=== PATIENT | female | born 2000 | race Caucasian/White ===

== ENCOUNTER 2023-08-23 23:33 | Emergency (ER) | payer OTHER ==
[2023-08-23] MEDS ORDERED: Sodium Chloride 0.9% 10 ML Syringe FLUSH PRN (23:56)
[2023-08-24 00:09] LABS: BASOPHILS ABSOLUTE AUTO 0.1 x10-3/uL (0.0-0.1); BASOPHILS PERCENT AUTO 0.9 % (0.2-1.5); EOSINOPHILS ABSOLUTE AUTO 0.4 x10-3/uL (0.0-0.8); EOSINOPHILS PERCENT AUTO 4.1 % (0.6-8.1); HEMATOCRIT 44.2 % (34.2-48.2); HEMOGLOBIN 15.1 g/dL (11.4-15.5); LYMPHOCYTES ABSOLUTE AUTO 3.3 x10-3/uL (1.0-4.4); LYMPHOCYTES PERCENT AUTO 31.8 % (18.4-52.1); MEAN CORPUSCULAR HEMOGLOBIN 28.7 pg (23.9-33.9); MEAN CORPUSCULAR HGB CONC 34.1 g/dL (31.9-34.8); MEAN CORPUSCULAR VOLUME 84.2 fL (76.7-100.5); MONOCYTES ABSOLUTE AUTO 0.9 x10-3/uL (0.3-1.0); MONOCYTES PERCENT AUTO 9.2 % (4.4-15.7); NEUTROPHILS ABSOLUTE AUTO 5.6 x10-3/uL (1.5-6.3); PLATELET COUNT,PLT 329 x10(3)uL (151-488); RED BLOOD CELL COUNT 5.25 x10(6)uL (3.60-5.20); RED CELL DISTRIBUTION WIDTH 13.7 % (12.3-16.5); WHITE BLOOD CELL COUNT,WBC 10.3 x10-3/uL (3.0-10.3)
[2023-08-24] MEDS: Sodium Chloride 0.9% 1,000 ML IV ONE (00:09)
[2023-08-24] MEDS ORDERED: Naloxone 0.4 MG/ML SDV IVPUSH PRN (00:11)
[2023-08-24 00:12] LABS: BLOOD UREA NITROGEN,BUN 12 mg/dL (7-18); CALCIUM 8.7 mg/dL (8.6-10.2); CARBON DIOXIDE,CO2 26 mmol/L (21-32); CHLORIDE,CL 105 mmol/L (100-110); EST CRCL DRUG DOSING (CG) 73.61 mL/min; ESTIMATED GFR 82 mL/min (>60); GLUCOSE RANDOM 96 mg/dL (80-116); POTASSIUM,K 4.3 mmol/L (3.5-5.3); SODIUM,NA 141 mmol/L (135-145)
[2023-08-24 00:14] LABS: LIPASE 37 U/L (16-77)
[2023-08-24 00:16] LABS: C-REACTIVE PROTEIN < 0.50 mg/dL (<0.50)
[2023-08-24 00:18] LABS: A/G RATIO 0.9; ALANINE AMINOTRANSFERASE,ALT 44 U/L (12-36); ALBUMIN 3.2 g/dL (3.5-5.2); ALKALINE PHOSPHATASE 84 IU/L (56-112); ASPARTATE AMNIOTRANSFERASE,AST 34 IU/L (5-25); BILIRUBIN TOTAL 0.5 mg/dL (0.1-1.3); MAGNESIUM 1.6 mg/dL (1.8-2.5); PROTEIN TOTAL,TP 6.9 g/dL (6.0-8.0)
[2023-08-24] MEDS: HYDROmorphone 2 MG/ML SDV IVPUSH ONE (00:18)
[2023-08-24] MEDS: Ondansetron 4 MG/2 ML SDV IVPUSH ONE (00:18)
[2023-08-24] MEDS: Haloperidol Lactate 5 MG/ML SDV IVPUSH ONE (00:59)
[2023-08-24] MEDS: LORazepam 2 MG/ML SDV IVPUSH ONE (00:59)
== END 2023-08-24 02:22 | disposition home or self-care (01) ==
LOC: FB.ED 23:33
DX: R10.10 Upper abdominal pain, unspecified (principal); F41.9 Anxiety disorder, unspecified; Z88.0 Allergy status to penicillin; Z91.040 Latex allergy status; Z88.8 Allergy status to other drugs, medicaments and biological substances; Z79.899 Other long term (current) drug therapy; K21.9 Gastro-esophageal reflux disease without esophagitis
CPT/HCPCS: 36415; 80053; 83605; 83690; 83735; 85025; 86140; 96361; 96374; 96375; 99284-25; J1170; J1630; J2060; J2405; J7030

== ENCOUNTER 2023-10-17 07:55 | Day surgery (SDC) | payer OTHER ==
[~2023-10-17 07:55] MED LIST: Sodium Chloride 0.9% 10 ML Syringe FLUSH PRN
[2023-10-17] MEDS ORDERED: Propofol 200 MG/20 ML SDV IV ONE (07:56)
[2023-10-17] MEDS ORDERED: Midazolam 1 MG/ML 2 ML SDV IV ONE (07:56)
[2023-10-17] MEDS ORDERED: Ketamine 500 mg/10 ML MDV IV ONE (07:56)
[2023-10-17] MEDS: Lactated Ringers 1,000 ML IV SCH (08:40)
[2023-10-17] MEDS: Simethicone Drops 40 MG/0.6 ML 30 ML Bottle ONE (09:32)
== END 2023-10-17 11:50 | disposition home or self-care (01) ==
LOC: FB.SDS 07:55
PROVIDERS: ATTEND Surgery
DX: K29.50 Unspecified chronic gastritis without bleeding (principal); K21.00 Gastro-esophageal reflux disease with esophagitis, without bleeding; K29.80 Duodenitis without bleeding; Z79.899 Other long term (current) drug therapy; Z88.0 Allergy status to penicillin; Z91.040 Latex allergy status
CPT/HCPCS: 00731; 43239; 88305; 88312; 88342; A9270; J2250; J2704; J3490; J7120

== ENCOUNTER 2024-03-03 09:22 | Emergency (ER) | payer OTHER ==
[2024-03-03] MEDS ORDERED: Sodium Chloride 0.9% 10 ML Syringe FLUSH PRN (10:11)
[2024-03-03 10:22] LABS: BASOPHILS ABSOLUTE AUTO 0.1 x10-3/uL (0.0-0.1); BASOPHILS PERCENT AUTO 0.6 % (0.2-1.5); EOSINOPHILS ABSOLUTE AUTO 0.2 x10-3/uL (0.0-0.8); EOSINOPHILS PERCENT AUTO 2.2 % (0.6-8.1); HEMATOCRIT 43.8 % (34.2-48.2); HEMOGLOBIN 15.1 g/dL (11.4-15.5); LYMPHOCYTES ABSOLUTE AUTO 3.1 x10-3/uL (1.0-4.4); LYMPHOCYTES PERCENT AUTO 27.2 % (18.4-52.1); MEAN CORPUSCULAR HEMOGLOBIN 29.4 pg (23.9-33.9); MEAN CORPUSCULAR HGB CONC 34.5 g/dL (31.9-34.8); MEAN CORPUSCULAR VOLUME 85.2 fL (76.7-100.5); MONOCYTES ABSOLUTE AUTO 1.1 x10-3/uL (0.3-1.0); MONOCYTES PERCENT AUTO 10.1 % (4.4-15.7); NEUTROPHILS ABSOLUTE AUTO 6.7 x10-3/uL (1.5-6.3); NEUTROPHILS PERCENT AUTO 59.9 % (30.8-76.2); PLATELET COUNT,PLT 296 x10(3)uL (151-488); RED BLOOD CELL COUNT 5.14 x10(6)uL (3.60-5.20); RED CELL DISTRIBUTION WIDTH 13.8 % (12.3-16.5); WHITE BLOOD CELL COUNT,WBC 11.3 x10-3/uL (3.0-10.3)
[2024-03-03 10:27] LABS: BLOOD UREA NITROGEN,BUN 12 mg/dL (7-18); BUN/CREATININE RATIO 13.3 (9-20); CALCIUM 9.1 mg/dL (8.6-10.2); CARBON DIOXIDE,CO2 26 mmol/L (21-32); CHLORIDE,CL 108 mmol/L (100-110); CREATININE 0.9 mg/dL (0.55-1.02); EST CRCL DRUG DOSING (CG) 88.97 mL/min; ESTIMATED GFR 93 mL/min (>60); GLUCOSE RANDOM 97 mg/dL (80-116); POTASSIUM,K 3.8 mmol/L (3.5-5.3); SODIUM,NA 144 mmol/L (135-145)
[2024-03-03 10:34] LABS: A/G RATIO 0.9; ALANINE AMINOTRANSFERASE,ALT 44 U/L (12-36); ALBUMIN 3.4 g/dL (3.5-5.2); ALKALINE PHOSPHATASE 87 IU/L (56-112); ASPARTATE AMNIOTRANSFERASE,AST 20 IU/L (5-25); BILIRUBIN TOTAL 0.5 mg/dL (0.1-1.3)
[2024-03-03 10:36] LABS: BILIRUBIN,URINE NEGATIVE (NEGATIVE); GLUCOSE,URINE NORMAL (NORMAL); KETONES,URINE NEGATIVE (NEGATIVE); LEUKOCYTE ESTERASE,URINE MODERATE (NEGATIVE); NITRITE,URINE NEGATIVE (NEGATIVE); OCCULT BLOOD,URINE MODERATE (NEGATIVE); PROTEIN,URINE 500 mg/dL (NEGATIVE); UROBILINOGEN,URINE NORMAL (NEGATIVE)
[2024-03-03] MEDS: Sodium Chloride 0.9% 1,000 ML IV ONE (10:38)
[2024-03-03] MEDS: Ketorolac 15 MG/ML SDV IVPUSH ONE (10:38)
[2024-03-03] MEDS: Ondansetron 4 MG/2 ML SDV IVPUSH ONE (10:38)
[2024-03-03 10:42] LABS: LACTIC ACID 0.8 mmol/L (0.4-2.0)
[2024-03-03 10:58] LABS: APPEARANCE,URINE CLOUDY (CLEAR); COLOR,URINE YELLOW (YELLOW)
[2024-03-03 10:59] LABS: BACTERIA,URINE MODERATE (NS); SQUAMOUS EPITHELIAL CELLS,UR FEW (NS,R,O); WBC,URINE 50-75 (0-5)
[2024-03-03] MEDS: Morphine 2 MG/ML SYRINGE IVPUSH ONE ×3 (11:20→17:27)
[2024-03-03] MEDS: Ciprofloxacin in D5W 400 MG in Premix Bag 1 BAG IV ONE (14:56)
== END 2024-03-03 17:35 ==
LOC: FB.ED 09:22
DX: K55.069 Acute infarction of intestine, part and extent unspecified (principal); N39.0 Urinary tract infection, site not specified; I10 Essential (primary) hypertension; E66.9 Obesity, unspecified; Z79.899 Other long term (current) drug therapy; Z88.0 Allergy status to penicillin; Z91.040 Latex allergy status; Z88.5 Allergy status to narcotic agent; Z88.8 Allergy status to other drugs, medicaments and biological substances; Z68.37 Body mass index [BMI] 37.0-37.9, adult
CPT/HCPCS: 74176; 80053; 81001; 83605; 83690; 85025; 87086; 96361; 96365; 96375; 96376; 99285; J0744; J1885; J2270; J2405; J7030

== ENCOUNTER 2024-04-02 10:12 | Emergency (ER) | payer OTHER ==
[2024-04-02 11:03] LABS: BILIRUBIN,URINE NEGATIVE (NEGATIVE); GLUCOSE,URINE NORMAL (NORMAL); KETONES,URINE NEGATIVE (NEGATIVE); LEUKOCYTE ESTERASE,URINE NEGATIVE (NEGATIVE); NITRITE,URINE NEGATIVE (NEGATIVE); OCCULT BLOOD,URINE NEGATIVE (NEGATIVE); PROTEIN,URINE NEGATIVE (NEGATIVE); UROBILINOGEN,URINE NORMAL (NEGATIVE)
[2024-04-02] MEDS ORDERED: Naloxone 0.4 MG/ML SDV IVPUSH PRN (11:04)
[2024-04-02] MEDS: Morphine 4 MG/ML VIAL IVPUSH ONE (11:12)
[2024-04-02] MEDS: Sodium Chloride 0.9% 10 ML Syringe FLUSH PRN (11:12)
[2024-04-02] MEDS: Ondansetron 4 MG/2 ML SDV IVPUSH ONE (11:12)
[2024-04-02] MEDS: Sodium Chloride 0.9% 1,000 ML IV ONE (11:14)
[2024-04-02 11:21] LABS: APPEARANCE,URINE CLEAR (CLEAR); BACTERIA,URINE OCCASIONAL (NS); COLOR,URINE YELLOW (YELLOW); RBC,URINE 0-5 (0-5); SQUAMOUS EPITHELIAL CELLS,UR RARE (NS,R,O); WBC,URINE 0-5 (0-5)
[2024-04-02 11:26] LABS: BASOPHILS ABSOLUTE AUTO 0.1 x10-3/uL (0.0-0.1); BASOPHILS PERCENT AUTO 0.8 % (0.2-1.5); EOSINOPHILS ABSOLUTE AUTO 0.3 x10-3/uL (0.0-0.8); EOSINOPHILS PERCENT AUTO 3.7 % (0.6-8.1); HEMOGLOBIN 14.5 g/dL (11.4-15.5); LYMPHOCYTES ABSOLUTE AUTO 2.4 x10-3/uL (1.0-4.4); LYMPHOCYTES PERCENT AUTO 26.6 % (18.4-52.1); MEAN CORPUSCULAR HEMOGLOBIN 29.6 pg (23.9-33.9); MEAN CORPUSCULAR HGB CONC 34.6 g/dL (31.9-34.8); MEAN CORPUSCULAR VOLUME 85.7 fL (76.7-100.5); MONOCYTES ABSOLUTE AUTO 0.9 x10-3/uL (0.3-1.0); MONOCYTES PERCENT AUTO 9.6 % (4.4-15.7); NEUTROPHILS ABSOLUTE AUTO 5.4 x10-3/uL (1.5-6.3); NEUTROPHILS PERCENT AUTO 59.3 % (30.8-76.2); PLATELET COUNT,PLT 308 x10(3)uL (151-488); RED CELL DISTRIBUTION WIDTH 13.7 % (12.3-16.5); WHITE BLOOD CELL COUNT,WBC 9.1 x10-3/uL (3.0-10.3)
[2024-04-02 11:32] LABS: BLOOD UREA NITROGEN,BUN 10 mg/dL (7-18); BUN/CREATININE RATIO 14.3 (9-20); CALCIUM 9.9 mg/dL (8.6-10.2); CARBON DIOXIDE,CO2 29 mmol/L (21-32); CHLORIDE,CL 105 mmol/L (100-110); CREATININE 0.7 mg/dL (0.55-1.02); ESTIMATED GFR 126 mL/min (>60); GLUCOSE RANDOM 104 mg/dL (80-116); POTASSIUM,K 4.2 mmol/L (3.5-5.3); SODIUM,NA 143 mmol/L (135-145)
[2024-04-02 11:37] LABS: ALANINE AMINOTRANSFERASE,ALT 50 U/L (12-36); ALBUMIN 3.4 g/dL (3.5-5.2); ALKALINE PHOSPHATASE 90 IU/L (56-112); ASPARTATE AMNIOTRANSFERASE,AST 22 IU/L (5-25); BILIRUBIN TOTAL 0.3 mg/dL (0.1-1.3); PROTEIN TOTAL,TP 6.7 g/dL (6.0-8.0)
[2024-04-02] MEDS: Iopamidol 755 Mg/ML 100 ML Bottle IV SCH (11:54)
[2024-04-02] MEDS: Ketorolac 30 MG/ML SDV IVPUSH ONE (12:32)
== END 2024-04-02 13:30 | disposition home or self-care (01) ==
LOC: FB.ED 10:12
DX: R10.31 Right lower quadrant pain (principal); I10 Essential (primary) hypertension; E66.9 Obesity, unspecified; F17.290 Nicotine dependence, other tobacco product, uncomplicated; Z88.0 Allergy status to penicillin; Z88.5 Allergy status to narcotic agent; Z88.8 Allergy status to other drugs, medicaments and biological substances; Z91.040 Latex allergy status; Z68.37 Body mass index [BMI] 37.0-37.9, adult
CPT/HCPCS: 36415; 74177; 80053; 81001; 81025; 83605; 83690; 83735; 85025; 96361; 96374; 96375; 99284; J1885; J2270; J2405; J7030; Q9967

== ENCOUNTER 2024-05-09 00:01 | Emergency (ER) | payer OTHER ==
[2024-05-09 02:28] LABS: BASOPHILS ABSOLUTE AUTO 0.1 x10-3/uL (0.0-0.1); BASOPHILS PERCENT AUTO 0.6 % (0.2-1.5); EOSINOPHILS ABSOLUTE AUTO 0.5 x10-3/uL (0.0-0.8); EOSINOPHILS PERCENT AUTO 5.9 % (0.6-8.1); HEMATOCRIT 39.7 % (34.2-48.2); HEMOGLOBIN 13.6 g/dL (11.4-15.5); LYMPHOCYTES ABSOLUTE AUTO 2.7 x10-3/uL (1.0-4.4); LYMPHOCYTES PERCENT AUTO 29.9 % (18.4-52.1); MEAN CORPUSCULAR HEMOGLOBIN 29.7 pg (23.9-33.9); MEAN CORPUSCULAR HGB CONC 34.4 g/dL (31.9-34.8); MEAN CORPUSCULAR VOLUME 86.3 fL (76.7-100.5); MEAN PLATELET VOLUME 7.8 fL (7.1-12.4); MONOCYTES ABSOLUTE AUTO 0.8 x10-3/uL (0.3-1.0); NEUTROPHILS ABSOLUTE AUTO 4.9 x10-3/uL (1.5-6.3); NEUTROPHILS PERCENT AUTO 54.6 % (30.8-76.2); PLATELET COUNT,PLT 313 x10(3)uL (151-488); RED CELL DISTRIBUTION WIDTH 13.1 % (12.3-16.5); WHITE BLOOD CELL COUNT,WBC 8.9 x10-3/uL (3.0-10.3)
[2024-05-09 02:31] LABS: BLOOD UREA NITROGEN,BUN 15 mg/dL (7-18); BUN/CREATININE RATIO 21.4 (9-20); CALCIUM 9.2 mg/dL (8.6-10.2); CARBON DIOXIDE,CO2 27 mmol/L (21-32); CHLORIDE,CL 107 mmol/L (100-110); CREATININE 0.7 mg/dL (0.55-1.02); EST CRCL DRUG DOSING (CG) 113.43 mL/min; ESTIMATED GFR 125 mL/min (>60); GLUCOSE RANDOM 93 mg/dL (80-116); POTASSIUM,K 4.2 mmol/L (3.5-5.3); SODIUM,NA 142 mmol/L (135-145)
[2024-05-09 02:43] LABS: A/G RATIO 0.6; ALANINE AMINOTRANSFERASE,ALT 25 U/L (12-36); ALBUMIN 2.8 g/dL (3.5-5.2); ALKALINE PHOSPHATASE 85 IU/L (56-112); ASPARTATE AMNIOTRANSFERASE,AST 18 IU/L (5-25); BILIRUBIN TOTAL 0.3 mg/dL (0.1-1.3); PROTEIN TOTAL,TP 7.5 g/dL (6.0-8.0)
== END 2024-05-09 03:06 | disposition home or self-care (01) ==
LOC: FB.ED 00:01
DX: K92.1 Melena (principal); G89.18 Other acute postprocedural pain; R10.13 Epigastric pain; I10 Essential (primary) hypertension; E66.9 Obesity, unspecified; Z68.37 Body mass index [BMI] 37.0-37.9, adult; Z90.49 Acquired absence of other specified parts of digestive tract; Z88.0 Allergy status to penicillin; Z88.5 Allergy status to narcotic agent; Z91.040 Latex allergy status; Z79.899 Other long term (current) drug therapy
CPT/HCPCS: 36415; 80053; 82272; 85025; 86140; 99284

== ENCOUNTER 2024-07-07 16:37 | Emergency (ER) | payer OTHER ==
[2024-07-07] MEDS ORDERED: Sodium Chloride 0.9% 10 ML Syringe FLUSH PRN (16:52)
[2024-07-07 17:23] LABS: BLOOD UREA NITROGEN,BUN 9 mg/dL (7-18); CALCIUM 8.7 mg/dL (8.6-10.2); CARBON DIOXIDE,CO2 27 mmol/L (21-32); CHLORIDE,CL 106 mmol/L (100-110); CREATININE 0.9 mg/dL (0.55-1.02); EST CRCL DRUG DOSING (CG) 88.23 mL/min; ESTIMATED GFR 93 mL/min (>60); GLUCOSE RANDOM 95 mg/dL (80-116); POTASSIUM,K 3.6 mmol/L (3.5-5.3); SODIUM,NA 142 mmol/L (135-145)
[2024-07-07] MEDS: Haloperidol Lactate 5 MG/ML SDV IVPUSH ONE (17:23)
[2024-07-07 17:24] LABS: C-REACTIVE PROTEIN 2.21 mg/dL (<0.50)
[2024-07-07] MEDS: Sodium Chloride 0.9% 1,000 ML IV ONE (17:24)
[2024-07-07] MEDS: LORazepam 2 MG/ML SDV IVPUSH ONE (17:24)
[2024-07-07 17:26] LABS: BASOPHILS ABSOLUTE AUTO 0.1 x10-3/uL (0.0-0.1); BASOPHILS PERCENT AUTO 0.6 % (0.2-1.5); EOSINOPHILS ABSOLUTE AUTO 0.3 x10-3/uL (0.0-0.8); EOSINOPHILS PERCENT AUTO 3.2 % (0.6-8.1); HEMATOCRIT 43.9 % (34.2-48.2); LYMPHOCYTES ABSOLUTE AUTO 2.3 x10-3/uL (1.0-4.4); LYMPHOCYTES PERCENT AUTO 24.8 % (18.4-52.1); MEAN CORPUSCULAR HEMOGLOBIN 28.6 pg (23.9-33.9); MEAN CORPUSCULAR HGB CONC 34.1 g/dL (31.9-34.8); MEAN PLATELET VOLUME 7.6 fL (7.1-12.4); MONOCYTES ABSOLUTE AUTO 0.8 x10-3/uL (0.3-1.0); MONOCYTES PERCENT AUTO 8.8 % (4.4-15.7); NEUTROPHILS ABSOLUTE AUTO 5.9 x10-3/uL (1.5-6.3); NEUTROPHILS PERCENT AUTO 62.6 % (30.8-76.2); PLATELET COUNT,PLT 309 x10(3)uL (151-488); RED BLOOD CELL COUNT 5.23 x10(6)uL (3.60-5.20); RED CELL DISTRIBUTION WIDTH 13.3 % (12.3-16.5); WHITE BLOOD CELL COUNT,WBC 9.4 x10-3/uL (3.0-10.3)
[2024-07-07 17:29] LABS: A/G RATIO 0.7; ALANINE AMINOTRANSFERASE,ALT 27 U/L (12-36); ALKALINE PHOSPHATASE 94 IU/L (56-112); ASPARTATE AMNIOTRANSFERASE,AST 20 IU/L (5-25); BILIRUBIN TOTAL 0.5 mg/dL (0.1-1.3); PROTEIN TOTAL,TP 7.2 g/dL (6.0-8.0)
[2024-07-07 17:35] LABS: BILIRUBIN,URINE NEGATIVE (NEGATIVE); GLUCOSE,URINE NORMAL (NORMAL); KETONES,URINE NEGATIVE (NEGATIVE); LEUKOCYTE ESTERASE,URINE SMALL (NEGATIVE); NITRITE,URINE NEGATIVE (NEGATIVE); OCCULT BLOOD,URINE NEGATIVE (NEGATIVE); PROTEIN,URINE 100 mg/dL (NEGATIVE); UROBILINOGEN,URINE NORMAL (NEGATIVE)
[2024-07-07 17:47] LABS: APPEARANCE,URINE CLEAR (CLEAR); COLOR,URINE YELLOW (YELLOW)
[2024-07-07 17:49] LABS: BACTERIA,URINE FEW (NS); EPITHELIAL CELLS,URINE FEW; RBC,URINE 0-5 (0-5); WBC,URINE 0-5 (0-5)
[2024-07-07] MEDS: Ketorolac 30 MG/ML SDV IVPUSH ONE (18:11)
== END 2024-07-07 18:43 | disposition home or self-care (01) ==
LOC: FB.ED 16:37
DX: R10.11 Right upper quadrant pain (principal); R11.2 Nausea with vomiting, unspecified; E86.0 Dehydration; I10 Essential (primary) hypertension; E66.9 Obesity, unspecified; Z88.0 Allergy status to penicillin; Z88.8 Allergy status to other drugs, medicaments and biological substances; Z91.040 Latex allergy status; Z88.1 Allergy status to other antibiotic agents; Z79.899 Other long term (current) drug therapy; Z90.49 Acquired absence of other specified parts of digestive tract; Z68.37 Body mass index [BMI] 37.0-37.9, adult
CPT/HCPCS: 36415; 80053; 81001; 81025; 83605; 83690; 83735; 85025; 86140; 87086; 96361; 96374; 96375; 99284; J1630; J1885; J2060; J7030; 99283

== ENCOUNTER 2024-07-19 04:05 | Emergency (ER) | payer OTHER ==
[2024-07-19 04:45] LABS: BASOPHILS ABSOLUTE AUTO 0.1 x10-3/uL (0.0-0.1); BASOPHILS PERCENT AUTO 0.8 % (0.2-1.5); EOSINOPHILS ABSOLUTE AUTO 0.5 x10-3/uL (0.0-0.8); EOSINOPHILS PERCENT AUTO 4.9 % (0.6-8.1); HEMATOCRIT 43.3 % (34.2-48.2); HEMOGLOBIN 14.7 g/dL (11.4-15.5); LYMPHOCYTES ABSOLUTE AUTO 2.9 x10-3/uL (1.0-4.4); LYMPHOCYTES PERCENT AUTO 31.1 % (18.4-52.1); MEAN CORPUSCULAR HEMOGLOBIN 28.6 pg (23.9-33.9); MEAN CORPUSCULAR HGB CONC 33.9 g/dL (31.9-34.8); MEAN CORPUSCULAR VOLUME 84.3 fL (76.7-100.5); MEAN PLATELET VOLUME 7.8 fL (7.1-12.4); MONOCYTES ABSOLUTE AUTO 0.9 x10-3/uL (0.3-1.0); MONOCYTES PERCENT AUTO 9.7 % (4.4-15.7); NEUTROPHILS ABSOLUTE AUTO 4.9 x10-3/uL (1.5-6.3); NEUTROPHILS PERCENT AUTO 53.5 % (30.8-76.2); PLATELET COUNT,PLT 343 x10(3)uL (151-488); RED BLOOD CELL COUNT 5.14 x10(6)uL (3.60-5.20); RED CELL DISTRIBUTION WIDTH 13.2 % (12.3-16.5); WHITE BLOOD CELL COUNT,WBC 9.2 x10-3/uL (3.0-10.3)
[2024-07-19 04:51] LABS: BLOOD UREA NITROGEN,BUN 11 mg/dL (7-18); BUN/CREATININE RATIO 13.8 (9-20); CALCIUM 8.5 mg/dL (8.6-10.2); CARBON DIOXIDE,CO2 22 mmol/L (21-32); CHLORIDE,CL 106 mmol/L (100-110); CREATININE 0.8 mg/dL (0.55-1.02); ESTIMATED GFR 107 mL/min (>60); GLUCOSE RANDOM 101 mg/dL (80-116); POTASSIUM,K 3.5 mmol/L (3.5-5.3); SODIUM,NA 140 mmol/L (135-145)
[2024-07-19 05:03] LABS: A/G RATIO 0.8; ALANINE AMINOTRANSFERASE,ALT 31 U/L (12-36); ALKALINE PHOSPHATASE 87 IU/L (56-112); ASPARTATE AMNIOTRANSFERASE,AST 17 IU/L (5-25); BILIRUBIN TOTAL 0.3 mg/dL (0.1-1.3); PROTEIN TOTAL,TP 6.9 g/dL (6.0-8.0)
== END 2024-07-19 06:00 | disposition home or self-care (01) ==
LOC: FB.ED 04:05
DX: E16.2 Hypoglycemia, unspecified (principal); I10 Essential (primary) hypertension; Z91.040 Latex allergy status; Z88.1 Allergy status to other antibiotic agents; Z88.0 Allergy status to penicillin; Z88.8 Allergy status to other drugs, medicaments and biological substances; Z79.899 Other long term (current) drug therapy; E66.9 Obesity, unspecified; Z90.49 Acquired absence of other specified parts of digestive tract
CPT/HCPCS: 36415; 80053; 82947; 85025; 99283; 99285

== ENCOUNTER 2024-09-01 10:44 | Emergency (ER) | payer OTHER ==
[2024-09-01 11:22] LABS: BASOPHILS ABSOLUTE AUTO 0.1 x10-3/uL (0.0-0.1); BASOPHILS PERCENT AUTO 0.7 % (0.2-1.5); EOSINOPHILS ABSOLUTE AUTO 0.2 x10-3/uL (0.0-0.8); EOSINOPHILS PERCENT AUTO 2.9 % (0.6-8.1); HEMATOCRIT 43.4 % (34.2-48.2); HEMOGLOBIN 15.1 g/dL (11.4-15.5); LYMPHOCYTES ABSOLUTE AUTO 2.4 x10-3/uL (1.0-4.4); LYMPHOCYTES PERCENT AUTO 28.5 % (18.4-52.1); MEAN CORPUSCULAR HEMOGLOBIN 27.8 pg (23.9-33.9); MEAN CORPUSCULAR HGB CONC 34.8 g/dL (31.9-34.8); MEAN CORPUSCULAR VOLUME 79.7 fL (76.7-100.5); MEAN PLATELET VOLUME 7.6 fL (7.1-12.4); MONOCYTES ABSOLUTE AUTO 0.9 x10-3/uL (0.3-1.0); MONOCYTES PERCENT AUTO 10.1 % (4.4-15.7); NEUTROPHILS ABSOLUTE AUTO 4.9 x10-3/uL (1.5-6.3); NEUTROPHILS PERCENT AUTO 57.8 % (30.8-76.2); PLATELET COUNT,PLT 313 x10(3)uL (151-488); RED BLOOD CELL COUNT 5.44 x10(6)uL (3.60-5.20); RED CELL DISTRIBUTION WIDTH 13.7 % (12.3-16.5); WHITE BLOOD CELL COUNT,WBC 8.5 x10-3/uL (3.0-10.3)
[2024-09-01 11:27] LABS: BLOOD UREA NITROGEN,BUN 14 mg/dL (7-18); BUN/CREATININE RATIO 15.6 (9-20); CALCIUM 9.1 mg/dL (8.6-10.2); CARBON DIOXIDE,CO2 24 mmol/L (21-32); CHLORIDE,CL 105 mmol/L (100-110); CREATININE 0.9 mg/dL (0.55-1.02); EST CRCL DRUG DOSING (CG) 88.23 mL/min; ESTIMATED GFR 93 mL/min (>60); GLUCOSE RANDOM 94 mg/dL (80-116); POTASSIUM,K 3.7 mmol/L (3.5-5.3); SODIUM,NA 139 mmol/L (135-145)
[2024-09-01 11:32] LABS: A/G RATIO 0.9; ALANINE AMINOTRANSFERASE,ALT 35 U/L (12-36); ALBUMIN 3.3 g/dL (3.5-5.2); ALKALINE PHOSPHATASE 97 IU/L (56-112); ASPARTATE AMNIOTRANSFERASE,AST 23 IU/L (5-25); BILIRUBIN TOTAL 0.6 mg/dL (0.1-1.3); PROTEIN TOTAL,TP 6.9 g/dL (6.0-8.0)
[2024-09-01] MEDS: Ketorolac 30 MG/ML SDV IM ONE (11:36)
[2024-09-01] MEDS: hydrOXYzine HCl 50 MG/ML SDV IM ONE (11:37)
[2024-09-01 11:48] LABS: BILIRUBIN,URINE NEGATIVE (NEGATIVE); GLUCOSE,URINE NORMAL (NORMAL); KETONES,URINE NEGATIVE (NEGATIVE); LEUKOCYTE ESTERASE,URINE NEGATIVE (NEGATIVE); NITRITE,URINE NEGATIVE (NEGATIVE); OCCULT BLOOD,URINE NEGATIVE (NEGATIVE); PROTEIN,URINE 30 mg/dL (NEGATIVE); UROBILINOGEN,URINE NORMAL (NEGATIVE)
[2024-09-01 11:54] LABS: APPEARANCE,URINE CLEAR (CLEAR); BACTERIA,URINE FEW (NS); COLOR,URINE YELLOW (YELLOW); RBC,URINE 0-5 (0-5); SQUAMOUS EPITHELIAL CELLS,UR RARE (NS,R,O); WBC,URINE 0-5 (0-5)
== END 2024-09-01 12:20 | disposition home or self-care (01) ==
LOC: FB.ED 10:44
DX: R10.9 Unspecified abdominal pain (principal); I10 Essential (primary) hypertension; K21.9 Gastro-esophageal reflux disease without esophagitis; E66.9 Obesity, unspecified; Z88.0 Allergy status to penicillin; Z88.1 Allergy status to other antibiotic agents; Z91.040 Latex allergy status; Z88.8 Allergy status to other drugs, medicaments and biological substances; Z79.899 Other long term (current) drug therapy; Z90.49 Acquired absence of other specified parts of digestive tract; Z68.38 Body mass index [BMI] 38.0-38.9, adult
CPT/HCPCS: 80053; 81001; 81025; 83690; 85025; 96372; 99284; J1885; J3410

== ENCOUNTER 2024-09-14 17:41 | Emergency (ER) | payer OTHER | END 2024-09-14 19:35 | disposition home or self-care (01) | LOC: FB.ED 17:41 | DX: S63.611A Unspecified sprain of left index finger, initial encounter (principal); S80.01XA Contusion of right knee, initial encounter; I10 Essential (primary) hypertension; K21.9 Gastro-esophageal reflux disease without esophagitis; E78.00 Pure hypercholesterolemia, unspecified; E66.9 Obesity, unspecified; Z88.0 Allergy status to penicillin; Z91.040 Latex allergy status; Z88.6 Allergy status to analgesic agent; Z88.8 Allergy status to other drugs, medicaments and biological substances; Z79.899 Other long term (current) drug therapy; Z90.49 Acquired absence of other specified parts of digestive tract; X50.1XXA Overexertion from prolonged static or awkward postures, initial encounter | CPT/HCPCS: 73130-LT; 73562-RT; 99283 ==